=== PATIENT | male | born 1950 | race Caucasian/White ===

== ENCOUNTER → 2024-01-14 12:00 | Outpatient (REF) | payer OTHER, SELFPAY ==
--- NOTE | 2024-01-07 11:31 | PN.DIAED02 ---
Referral
DSME Class Series Code: [id number]
Referred For: Diabetes Self-Management Training
PHI Release Authorization Form Signed: Yes
Demographic
(1) Type 2 diabetes mellitus
Status: Acute Code(s): E11.9 - Type 2 diabetes mellitus without complications
Patient's primary language-: Nepali
Education: Some college
Occupation: Retired
- Social
Primary Support Person: Self & spouse
Primary Care Takers: Self
Living Arrangements: Self & spouse
- Learning Methods
Preferred Method: Reading
Barriers to Learning: None
Glycemic Control
- Blood Glucose Monitoring Assessment
Date: 01/07/24
Blood glucose monitoring at home: No (Brought in [employer])
Monitor Brands: [employer] ([employer])
Time: fasting, after breakfast, after lunch, after dinner
- Hemoglobin A1c
Date: 12/10/23
A1C Percentage (%): 7.2
Medical History of Diabetes
Previous Diabetes Education: No
Previous visit with Dietitian: No
Complications/Comorbidity/Specialist: Hypertension
Measures
- Anthropometrics
Height: 5 ft 10 in
Actual Weight: 201 lb (226# 18 months ago (intentional))
- Blood Pressure / Pulse
Blood pressure: 165/78 (Takes Lisinopril at lunchtime)
- Diabetes Management
Medical Management for Diabetes: Complete physical exam (06/19/2023), Dental exam (03/08/2022), Dilated eye exam (12/28/2023)
Self-Care
- Tobacco Usage
Do you now, or have you ever smoked?: Quit more than 1 year ago (30+ years ago)
- Alcohol & Drugs Usage
Drinks Alcohol: Yes
Amount/day: Rarely (wedding or other celebration)
- Meals & Dining
Meals & Dining: Patient skips meals: No, Food Intolerance / Allergy: No, Cultural / Druze Dietary Needs: No
Primary Food Shotweld Operator: Spouse
Primary Rv Mechanic: Spouse
Dining Out Frequency: 1-3x per week (1)
- Physical Activity
Physical Limitation: No
Patient participates in physical Activity: No
- Patient-Self Assessment
Diabetes Knowledge: Fair
Feelings About Diabetes: Guilt
General Health: Good
Importance of Health: Somewhat
Stress Level: Low
Diabetes Interferes With:: Nothing
Depression Survey Score: 0
Care Plan
- Education Needs
Patient Education Needs: Diabetes disease process, Chronic complications, Acute complications, Medication, Monitoring, Physical activity, Psychosocial Adjustment, Nutritional management, Goal setting & problem solving
Recommended Diabetes Training Program based on assessment: Outpatient Diabetes Education Program
- Plan of Care
Plan of Care:
Ludin recently diagnosed with T2DM, A1C 7.2%. No medications for diabetes at this time. He brought in a [employer] from home and tried using prior to visit but unable to get a reading. Instructions with good return demonstration with result of
110 mg/dl 2 hr post breakfast (oatmeal and fruit). Aware of proper testing technique, testing sites (and to rotate) as well as expected results. Handout with this information provided. He does not exercise but states that he is very active. Goals
established and directions to classroom given. Phone number provided for follow up questions. to attend.
--- NOTE | 2024-01-07 11:41 | PN.DIAED04 ---
Education Record
- Education Record
Class Attended: Class 1 (pre registration 01/07/24 for outpt DSME classes starting 01/14/24)
DSME Class Series Code: [id number]
Instructor: Registered Nurse (Chary Oconnell, RN, BSN, [facility] [place])
Class Curriculum:
Outpatient Diabetes Education Program:
Initial Assessment (45 minutes)
Individualized assessment
Develop personal strategies to promote health and behavior change
Development of diabetes self-management support plan
Class Length (mins): 60
Pre-Program Knowledge: Needs review / Assistance
Pre-Test Score (%): 79
Goals
- Goal 1
Being Active: Exercise 15 minutes-3 times per week (Goal is to walk)
Goals To Be Evaluated: Exercise 15 mins-3x/week
- Goal 2
Healthy Eating: Make better food choices
Goals To Be Evaluated: Make better food choices
- Goal 3
Monitoring: Monitor more often, Take blood sugar in the prescribed pattern
Goals To Be Evaluated: Monitor more often. Test BG-prescribed times
--- NOTE | 2024-01-15 09:52 | PN.DIAED04 ---
Education Record
- Education Record
Class Attended: Class 1
DSME Class Series Code: [id number]
Instructor: Nurse Practitioner (DEISY Barnes)
Class Length (mins): 120
Post-Class 1 Test Score (%): 94
--- NOTE | 2024-01-15 09:52 | PN.DIAED14 ---
This is to notify you that your patient with diabetes, IQRA COOMBS ( 1950), has enrolled in our diabetes self-management classes that are being held at [facility].
These classes will include an introduction to diabetes, diet, medication, exercise and prevention of complications. At the end of our class series, you will receive a report of your patient's participation and progress for your records.
Please contact me at the Diabetes Center, , if there is any particular information regarding your patient that might be helpful to me.
Sincerely,
--- NOTE | 2024-01-17 14:58 | PN.DIAED06 ---
Meal Plans - Regular
- Meal Plan
Diabetic Meal Plan Name: 1800 calories
Breakfast - Total Carbohydrate (grams): 45
Breakfast - Starch Carbohydrate: 0
Breakfast - Fruit Carbohydrate: 0
Breakfast - Milk Carbohydrate: 0
Breakfast - Nonstarchy Vegetables: Yes
Breakfast - Meat/Protein: 1
Breakfast - Fat: 2
Morning Snack - Total Carbohydrate (grams): 15
Morning Snack - Starch Carbohydrate: 0
Morning Snack - Fruit Carbohydrate: 0
Morning Snack - Milk Carbohydrate: 0
Morning Snack - Nonstarchy Vegetables: Yes
Morning Snack - Meat/Protein: 0.5
Morning Snack - Fat: 0
Lunch - Total Carbohydrate (grams): 45
Lunch - Starch Carbohydrate: 0
Lunch - Fruit Carbohydrate: 0
Lunch - Milk Carbohydrate: 0
Lunch - Nonstarchy Vegetables: Yes
Lunch - Meat/Protein: 3
Lunch - Fat: 1
Afternoon Snack - Total Carbohydrate (grams): 15
Afternoon Snack - Starch Carbohydrate: 0
Afternoon Snack - Fruit Carbohydrate: 0
Afternoon Snack - Milk Carbohydrate: 0
Afternoon Snack - Nonstarchy Vegetables: Yes
Afternoon Snack - Meat/Protein: 0.5
Afternoon Snack - Fat: 0
Dinner - Total Carbohydrate (grams): 45
Dinner - Starch Carbohydrate: 0
Dinner - Fruit Carbohydrate: 0
Dinner - Milk Carbohydrate: 0
Dinner - Nonstarchy Vegetables: Yes
Dinner - Meat/Protein: 3
Dinner - Fat: 2
Evening Snack - Total Carbohydrate (grams): 15
Evening Snack - Starch Carbohydrate: 0
Evening Snack - Fruit Carbohydrate: 0
Evening Snack - Milk Carbohydrate: 0
Evening Snack - Nonstarchy Vegetables: Yes
Evening Snack - Meat/Protein: 0
Evening Snack - Fat: 0
== END ==
LOC: DES 12:00
PROVIDERS: ATTENDING PHYSICIAN Family Medicine
DX: E11.9 Type 2 diabetes mellitus without complications (principal)
CPT/HCPCS: 99078

== ENCOUNTER → 2024-01-21 12:00 | Outpatient (REF) | payer OTHER, SELFPAY ==
--- NOTE | 2024-01-23 08:20 | PN.DIAED04 ---
Education Record
- Education Record
Class Attended: Class 2
[facility] Class [facility] Code: [id number]
Instructor: Registered Dietitian (Anastasiia Madsen, MARY JON, LDN)
Class Length (mins): 120
== END ==
LOC: DES 12:00
PROVIDERS: ATTENDING PHYSICIAN Family Medicine
DX: E11.9 Type 2 diabetes mellitus without complications (principal)
CPT/HCPCS: 99078

== ENCOUNTER → 2024-01-28 12:00 | Outpatient (REF) | payer OTHER, SELFPAY ==
--- NOTE | 2024-01-30 07:53 | PN.DIAED04 ---
Education Record
- Education Record
Class Attended: Class 3
DSME Class Series Code: [id number]
Instructor: Registered Dietitian (Cary Good, RD, LDN, CDE)
Class Length (mins): 120
Post-Class 2 & 3 Test Score (%): 81
== END ==
LOC: DES 12:00
PROVIDERS: ATTENDING PHYSICIAN Family Medicine
DX: E11.9 Type 2 diabetes mellitus without complications (principal)
CPT/HCPCS: 99078

== ENCOUNTER → 2024-02-11 12:00 | Outpatient (REF) | payer OTHER, SELFPAY ==
--- NOTE | 2024-02-11 15:47 | PN.DIAED04 ---
Education Record
- Education Record
Class Attended: Class 4
DSME Class Series Code: [id number]
Instructor: Nurse Practitioner (DEISY Barnes)
Class Length (mins): 120
Post-Class 4 Test Score (%): 100
== END ==
LOC: DES 12:00
PROVIDERS: ATTENDING PHYSICIAN Family Medicine
DX: E11.9 Type 2 diabetes mellitus without complications (principal)
CPT/HCPCS: 99078

== ENCOUNTER → 2024-02-11 18:00 | Outpatient (REF) | payer OTHER, SELFPAY | LOC: DES 18:00 | PROVIDERS: ATTENDING PHYSICIAN Family Medicine | DX: E11.9 Type 2 diabetes mellitus without complications (principal) | CPT/HCPCS: 99078 ==

== ENCOUNTER 2025-03-25 06:25 | Day surgery (SDC) | payer OTHER, SELFPAY | END 2025-03-25 08:33 | disposition home or self-care (01) | LOC: GI 06:25 | PROVIDERS: ATTENDING PHYSICIAN Specialist | DX: Z12.11 Encounter for screening for malignant neoplasm of colon (principal); D12.4 Benign neoplasm of descending colon; K57.30 Diverticulosis of large intestine without perforation or abscess without bleeding; Z80.0 Family history of malignant neoplasm of digestive organs; Z86.0101 Personal history of adenomatous and serrated colon polyps | CPT/HCPCS: 45385; 88305 ==